=== PATIENT | female | born 1970 | race Caucasian/White ===

== ENCOUNTER 2018-03-27 10:33 | Emergency (ER) | payer OTHER ==
[2018-03-27] MEDS: KETOROLAC 60 MG INJ IM (11:28)
== END 2018-03-27 12:21 | disposition home or self-care (01) ==
LOC: FTE 10:33
DX: S39.92XA Unspecified injury of lower back, initial encounter (principal); I10 Essential (primary) hypertension; X58.XXXA Exposure to other specified factors, initial encounter; Y92.9 Unspecified place or not applicable
CPT/HCPCS: 81025; 96372; 99284-25

== ENCOUNTER 2018-04-16 04:19 | Emergency (ER) | payer OTHER ==
[2018-04-16] MEDS: KETOROLAC 30 MG INJ IV (06:22)
[2018-04-16] MEDS: SOD CHLORIDE 0.9% 1,000 ML IV (06:28)
[2018-04-16 06:29] LABS: ADD MAN DIFF? NO
[2018-04-16 06:31] LABS: BASOPHILS % 0.2 % (0.0-2.0); EOSINOPHILS % 0.2 % (0.0-7.0); HEMATOCRIT 41.5 % (37.0-47.0); HEMOGLOBIN 13.7 g/dl (12.0-16.0); LYMPHOCYTES # 1.7 10^3/ul (0.8-2.9); LYMPHOCYTES % 7.9 % (15.0-51.0); MEAN CORPUSCULAR HEMOGLOBIN 31.3 pg (29.0-33.0); MEAN CORPUSCULAR VOLUME 94.7 fl (82.0-101.0); MEAN PLATELET VOLUME 10.4 fl (7.4-10.4); MONOCYTE # 1.2 10^3/ul (0.3-0.9); MONOCYTES % 5.8 % (0.0-11.0); NEUTROPHILS % 85.5 % (39.0-77.0); RED BLOOD COUNT 4.38 10^6/ul (4.20-5.40); RED CELL DISTRIBUTION WIDTH 12.5 % (11.5-14.5)
[2018-04-16 06:34] LABS: ADD UMIC NO; UR ASCORBIC ACID NEGATIVE (NEGATIVE); UR BILIRUBIN (Dip) NEGATIVE (NEGATIVE); UR BLOOD (Dip) NEGATIVE (NEGATIVE); UR CLARITY CLEAR (CLEAR); UR COLOR YELLOW (YELLOW); UR GLUCOSE (Dip) NEGATIVE (NEGATIVE); UR KETONES (Dip) 1+ mg/dL (NEGATIVE); UR LEUKOCYTE ESTERASE (Dip) NEGATIVE Leu/ul (NEGATIVE); UR NITRITE (Dip) NEGATIVE (NEGATIVE); UR SPECIFIC GRAVITY (Dip) 1.023 (1.003-1.030); UR TOTAL PROTEIN (Dip) NEGATIVE (NEGATIVE); UR UROBILINOGEN (Dip) 2+ mg/dL (NEGATIVE)
[2018-04-16 06:49] LABS: ALANINE AMINOTRANSFERASE 22 IU/L (13-69); ALBUMIN 4.8 g/dl (3.3-4.9); ALBUMIN/GLOBULIN RATIO 1.11; ALKALINE PHOSPHATASE 79 IU/L (42-121); ANION GAP 17 (8-16); ASPARTATE AMINO TRANSFERASE 67 IU/L (15-46); BLOOD UREA NITROGEN 12 mg/dl (7-20); CARBON DIOXIDE 26 mmol/L (21-31); CHLORIDE 105 mmol/L (97-110); CREATININE 0.54 mg/dl (0.44-1.00); GLUCOSE 129 mg/dl (70-220); POTASSIUM 5.8 mmol/L (3.5-5.1); SODIUM 142 mmol/L (135-144); TOTAL PROTEIN 9.1 g/dl (6.1-8.1)
[2018-04-16 07:15] LABS: PLATELET COUNT 258 10^3/UL (140-415); POSITIVE DIFF @See below
[2018-04-16] MEDS: SOD CHLORIDE 0.9% 100 ML (08:52)
[2018-04-16] MEDS: IOHEXOL 300MG/ML 150 ML BTL (08:52)
[2018-04-16] MEDS: DEXAMETHASONE 10 MG/ML 1 ML INJ IV (09:12)
[2018-04-16] MEDS: AMPICILLIN/SULB 3 GM/NS (PMX) 100 ML IVPB (09:14)
[2018-04-16] MEDS: CLINDAMYCIN 900 MG/D5W (PMX) 50 ML IVPB (09:31)
[2018-04-16 10:05] LABS: POTASSIUM 4.4 mmol/L (3.5-5.1)
== END 2018-04-16 11:36 | disposition home or self-care (01) ==
LOC: FTE 04:19
DX: J36 Peritonsillar abscess (principal); I10 Essential (primary) hypertension
CPT/HCPCS: 70491; 80053; 81003; 81025; 84132; 85025; 87880; 96361; 96365; 96375; 99285-25

== ENCOUNTER 2018-04-18 20:59 | Emergency (ER) | payer OTHER ==
[2018-04-19] MEDS: SOD CHLORIDE 0.9% 1,000 ML IV (01:10)
[2018-04-19] MEDS: KETOROLAC 30 MG INJ IV (01:10)
[2018-04-19 01:23] LABS: ADD MAN DIFF? NO
[2018-04-19 01:27] LABS: BASOPHIL # 0.1 10^3/ul (0.0-0.1); BASOPHILS % 0.3 % (0.0-2.0); EOSINOPHILS % 0.2 % (0.0-7.0); HEMATOCRIT 41.4 % (37.0-47.0); HEMOGLOBIN 13.6 g/dl (12.0-16.0); LYMPHOCYTES # 4.3 10^3/ul (0.8-2.9); LYMPHOCYTES % 22.8 % (15.0-51.0); MEAN CORPUSCULAR HEMOGLOBIN 31.2 pg (29.0-33.0); MEAN CORPUSCULAR HGB CONC 32.9 g/dl (32.0-37.0); MEAN PLATELET VOLUME 9.7 fl (7.4-10.4); MONOCYTE # 1.4 10^3/ul (0.3-0.9); MONOCYTES % 7.4 % (0.0-11.0); NEUTROPHIL # 12.9 10^3/ul (1.6-7.5); NEUTROPHILS % 68.5 % (39.0-77.0); PLATELET COUNT 406 10^3/UL (140-415); RED BLOOD COUNT 4.36 10^6/ul (4.20-5.40); RED CELL DISTRIBUTION WIDTH 12.3 % (11.5-14.5)
[2018-04-19 01:27] LABS: WHITE BLOOD COUNT 18.8 10^3/ul (4.8-10.8)
[2018-04-19 01:51] LABS: ALANINE AMINOTRANSFERASE 39 IU/L (13-69); ALBUMIN 4.4 g/dl (3.3-4.9); ALBUMIN/GLOBULIN RATIO 1.33; ALKALINE PHOSPHATASE 83 IU/L (42-121); ANION GAP 16 (8-16); ASPARTATE AMINO TRANSFERASE 28 IU/L (15-46); BILIRUBIN,INDIRECT 0.3 mg/dl (0-1.1); BILIRUBIN,TOTAL 0.3 mg/dl (0.2-1.3); BLOOD UREA NITROGEN 15 mg/dl (7-20); CALCIUM 9.6 mg/dl (8.4-10.2); CARBON DIOXIDE 31 mmol/L (21-31); CHLORIDE 100 mmol/L (97-110); CREATININE 0.69 mg/dl (0.44-1.00); GLUCOSE 110 mg/dl (70-220); SODIUM 143 mmol/L (135-144); TOTAL PROTEIN 7.7 g/dl (6.1-8.1)
[2018-04-19] MEDS: SOD CHLORIDE 0.9% 100 ML (02:20)
[2018-04-19] MEDS: IOHEXOL 300MG/ML 150 ML BTL (02:20)
[2018-04-19] MEDS: DEXAMETHASONE 10 MG/ML 1 ML INJ IV (03:56)
[2018-04-19] MEDS: CLINDAMYCIN 600 MG/D5W (PMX) 50 ML IVPB (04:16)
== END 2018-04-19 04:41 | disposition home or self-care (01) ==
LOC: FTE 20:59
DX: J36 Peritonsillar abscess (principal); I10 Essential (primary) hypertension
CPT/HCPCS: 36415; 70491; 80053; 81025; 85025; 96374; 96375; 99285-25

== ENCOUNTER 2018-04-21 17:42 | Inpatient (IN) | payer OTHER ==
[~2018-04-21 17:42] MED LIST: SUCCINYLCHOLINE CHLORIDE 100 MG/5 ML SYG IV
[2018-04-21] MEDS: ONDANSETRON 4 MG INJ IV (18:03)
[2018-04-21] MEDS: DEXAMETHASONE 10 MG/ML 1 ML INJ IV (18:04)
[2018-04-21] MEDS: KETOROLAC 30 MG INJ IV (18:04)
[2018-04-21] MEDS: SOD CHLORIDE 0.9% 1,000 ML IV (18:05)
[2018-04-21 18:13] LABS: ADD MAN DIFF? NO
[2018-04-21 18:24] LABS: BASOPHIL # 0.1 10^3/ul (0.0-0.1); BASOPHILS % 0.5 % (0.0-2.0); EOSINOPHILS # 0.1 10^3/ul (0.0-0.5); EOSINOPHILS % 0.6 % (0.0-7.0); HEMATOCRIT 40.7 % (37.0-47.0); HEMOGLOBIN 13.7 g/dl (12.0-16.0); LYMPHOCYTES # 3.7 10^3/ul (0.8-2.9); LYMPHOCYTES % 20.8 % (15.0-51.0); MEAN CORPUSCULAR HEMOGLOBIN 31.6 pg (29.0-33.0); MEAN CORPUSCULAR HGB CONC 33.7 g/dl (32.0-37.0); MEAN PLATELET VOLUME 9.5 fl (7.4-10.4); MONOCYTE # 1.2 10^3/ul (0.3-0.9); MONOCYTES % 6.5 % (0.0-11.0); NEUTROPHIL # 12.3 10^3/ul (1.6-7.5); NEUTROPHILS % 69.9 % (39.0-77.0); PLATELET COUNT 427 10^3/UL (140-415); RED BLOOD COUNT 4.33 10^6/ul (4.20-5.40)
[2018-04-21 18:24] LABS: WHITE BLOOD COUNT 17.7 10^3/ul (4.8-10.8)
[2018-04-21 18:39] LABS: INR 0.92; PROTIME 12.4 Sec (11.9-14.9)
[2018-04-21 18:43] LABS: ALANINE AMINOTRANSFERASE 33 IU/L (13-69); ALBUMIN 4.2 g/dl (3.3-4.9); ALKALINE PHOSPHATASE 74 IU/L (42-121); ANION GAP 14 (8-16); ASPARTATE AMINO TRANSFERASE 40 IU/L (15-46); BILIRUBIN,INDIRECT 0.5 mg/dl (0-1.1); BILIRUBIN,TOTAL 0.5 mg/dl (0.2-1.3); BLOOD UREA NITROGEN 15 mg/dl (7-20); CARBON DIOXIDE 31 mmol/L (21-31); CHLORIDE 99 mmol/L (97-110); CREATININE 0.64 mg/dl (0.44-1.00); GLUCOSE 104 mg/dl (70-220); POTASSIUM 4.6 mmol/L (3.5-5.1); SODIUM 139 mmol/L (135-144); TOTAL PROTEIN 7.7 g/dl (6.1-8.1)
[2018-04-21] MEDS ORDERED: SOD CHLORIDE 0.9% 100 ML (18:55)
[2018-04-21] MEDS ORDERED: IOHEXOL 300MG/ML 150 ML BTL (18:55)
[2018-04-21] MEDS ORDERED: VANCOMYCIN 1 GM (PMX) 250 ML IVPB (21:00)
[2018-04-21] MEDS ORDERED: AMPICILLIN/SULB 3 GM/NS (PMX) 100 ML IVPB ×2 (21:00→22:00)
[2018-04-21] MEDS ORDERED: NEOSTIGMINE 3 MG/3 ML SYRINGE (21:58)
[2018-04-21] MEDS ORDERED: CEFAZOLIN 1 GM INJ (21:58)
[2018-04-21] MEDS ORDERED: ROCURONIUM 50 MG INJ (21:58)
[2018-04-21] MEDS ORDERED: PROPOFOL 20 ML (21:58)
[2018-04-21] MEDS ORDERED: GLYCOPYRROLATE 0.4 MG INJ (21:58)
[2018-04-21] MEDS ORDERED: ALBUTEROL/IPRATROPIUM (NEB) 3 ML AMP NEB (22:00)
[2018-04-21] MEDS ORDERED: FENTAnyl 50 MCG/ML VIAL (22:00)
[2018-04-21] MEDS ORDERED: ONDANSETRON 4 MG INJ (22:00)
[2018-04-21] MEDS ORDERED: ONDANSETRON 4 MG INJ IV ×2 (22:00→22:30)
[2018-04-21] MEDS ORDERED: DEXAMETHASONE 4 MG/ML 1 ML INJ (22:00)
[2018-04-21] MEDS ORDERED: MIDAZOLAM 1 MG/ML 2 ML INJ (22:00)
[2018-04-21] MEDS: BUPIVACAINE 0.5% (SDV) 30 ML INJ (22:16)
[2018-04-21] MEDS ORDERED: SUGAMMADEX SODIUM 200 MG/2 ML VIAL IV (22:26)
[2018-04-21] MEDS ORDERED: TRIMETHOBENZAMIDE 100 MG/ML VIAL IM (22:30)
[2018-04-21] MEDS ORDERED: MIDAZOLAM 1 MG/ML 2 ML INJ IV (22:30)
[2018-04-21] MEDS ORDERED: FENTAnyl 50 MCG/ML VIAL IV ×3 (22:30)
[2018-04-21] MEDS ORDERED: hydrALAzine 20 MG INJ IV (22:30)
[2018-04-21] MEDS ORDERED: OXYCODONE/ACETAMINOPHEN (5/325) TAB PO ×2 (22:30)
[2018-04-21] MEDS ORDERED: MEPERIDINE 25 MG INJ IV (22:30)
[2018-04-21] MEDS ORDERED: DIPHENHYDRAMINE 50 MG INJ IV (22:30)
[2018-04-21] MEDS ORDERED: EPHEDrine SULFATE 50 MG/5 ML SYG IV (22:30)
[2018-04-21] MEDS ORDERED: IPRATROPIUM (NEB) 0.5 MG/2.5 ML AMP HHN (22:30)
[2018-04-21] MEDS ORDERED: LABETALOL HCL 20MG INJ IV (22:30)
[2018-04-21] MEDS ORDERED: HYDROmorphONE 1 MG/5 ML IV SYRINGE IV ×3 (22:30)
[2018-04-21] MEDS ORDERED: ALBUTEROL 0.083% (NEB) 2.5 MG/3 ML AMP HHN (22:30)
[2018-04-21] MEDS: DEXTROSE 5%-0.45% NACL 1,000 ML IV (23:47)
[2018-04-21] MEDS: morphine 2 MG INJ IV (23:50)
[2018-04-22] MEDS: AMPICILLIN/SULB 3 GM/NS (PMX) 100 ML IVPB ×3 (01:11→12:16)
[2018-04-22] MEDS: VANCOMYCIN 1.75 GM in SOD CHLORIDE 0.9% 500 ML IVPB (02:51)
[2018-04-22 05:15] LABS: ADD MAN DIFF? NO
[2018-04-22 05:28] LABS: BASOPHILS % 0.1 % (0.0-2.0); HEMATOCRIT 39.1 % (37.0-47.0); HEMOGLOBIN 13.2 g/dl (12.0-16.0); LYMPHOCYTES # 1.4 10^3/ul (0.8-2.9); LYMPHOCYTES % 10.1 % (15.0-51.0); MEAN CORPUSCULAR HEMOGLOBIN 31.4 pg (29.0-33.0); MEAN CORPUSCULAR HGB CONC 33.8 g/dl (32.0-37.0); MEAN CORPUSCULAR VOLUME 93.1 fl (82.0-101.0); MEAN PLATELET VOLUME 9.3 fl (7.4-10.4); MONOCYTE # 0.2 10^3/ul (0.3-0.9); MONOCYTES % 1.5 % (0.0-11.0); NEUTROPHIL # 12.3 10^3/ul (1.6-7.5); NEUTROPHILS % 86.9 % (39.0-77.0); PLATELET COUNT 409 10^3/UL (140-415)
[2018-04-22 05:28] LABS: WHITE BLOOD COUNT 14.1 10^3/ul (4.8-10.8)
[2018-04-22 05:59] LABS: ALANINE AMINOTRANSFERASE 36 IU/L (13-69); ALBUMIN 3.5 g/dl (3.3-4.9); ALBUMIN/GLOBULIN RATIO 0.94; ALKALINE PHOSPHATASE 78 IU/L (42-121); ANION GAP 13 (8-16); ASPARTATE AMINO TRANSFERASE 17 IU/L (15-46); BILIRUBIN,INDIRECT 0.3 mg/dl (0-1.1); BILIRUBIN,TOTAL 0.3 mg/dl (0.2-1.3); BLOOD UREA NITROGEN 12 mg/dl (7-20); CALCIUM 8.7 mg/dl (8.4-10.2); CARBON DIOXIDE 29 mmol/L (21-31); CHLORIDE 105 mmol/L (97-110); GLUCOSE 147 mg/dl (70-220); POTASSIUM 4.5 mmol/L (3.5-5.1); SODIUM 142 mmol/L (135-144); TOTAL PROTEIN 7.2 g/dl (6.1-8.1)
[2018-04-22] MEDS: morphine 2 MG INJ IV (08:11)
[2018-04-22] MEDS ORDERED: VANCOMYCIN IV PER PHARMACY XX (09:00)
[2018-04-22] MEDS: VANCOMYCIN 1.25 GM in SOD CHLORIDE 0.9% 250 ML IVPB (13:17)
== END 2018-04-22 14:45 | disposition home or self-care (01) | DRG 854 ==
LOC: ICU 22:16 → E/R 17:42 → SDS 22:00 → REC 22:01 → ICU 22:50
PROC: 0C9 Mouth and Throat, Drainage (ICD-10-PCS; principal; 2018-04-21 22:03)
PROC: 0CBPXZZ Excision of Tonsils, External Approach (ICD-10-PCS; 2018-04-21 22:03)
DX: A41.9 Sepsis, unspecified organism (principal); J36 Peritonsillar abscess; Z68.42 Body mass index [BMI] 45.0-49.9, adult; E66.01 Morbid (severe) obesity due to excess calories; I10 Essential (primary) hypertension; E78.5 Hyperlipidemia, unspecified; B96.3 Hemophilus influenzae [H. influenzae] as the cause of diseases classified elsewhere
CPT/HCPCS: 70491; 80053; 81025; 85025; 85610; 85730; 87040; 87070; 87075; 87102; 87116; 88304; 96374; 96375; 99291-25

== ENCOUNTER 2018-06-02 08:23 | Emergency (ER) | payer OTHER ==
[2018-06-02] MEDS: KETOROLAC 30 MG INJ IM (09:13)
== END 2018-06-02 10:18 | disposition home or self-care (01) ==
LOC: FTE 08:23
DX: S49.91XA Unspecified injury of right shoulder and upper arm, initial encounter (principal); I10 Essential (primary) hypertension; W18.39XA Other fall on same level, initial encounter; Y92.9 Unspecified place or not applicable
CPT/HCPCS: 73060; 73060-RT; 81025; 96372; 99284-25